=== PATIENT | female | born 1965 | race Hispanic/Latino ===

== ENCOUNTER 2017-07-28 00:13 | Emergency (ER) | payer MEDICARE ==
[~2017-07-28 00:13] MED LIST: AMLO10TA2 PO; BIMA2.5D4 OU; BRIM5DRO OU; CLAR500T PO; DIAZ10TA4 PO; DOCU100C19 PO; FLUT16H IH; FOLI0.8T22 PO; INSU100V12 SQ; LOSA100T29 PO; Lactulose PO; METO-409 PO; OMEP20CA10 PO; PHOSLOC PO; PREDAOS OD; SEVE800T7 PO; SIMV20TA6 PO; [UNRECOGNIZED DRUG - CODE] SQ
[2017-07-28] MEDS ORDERED: LORAZEPAM 2 MG/ML 1 ML VIAL ONE ×4 (00:21→04:13)
[2017-07-28] MEDS ORDERED: SODIUM CHLORIDE 0.9% 1000ML 1,000 ML IV ONE (00:44)
[2017-07-28] MEDS ORDERED: INSULIN HUMULIN R 100 UNIT/ML 3ML ONE ×2 (00:54→02:50)
[2017-07-28 01:14] LABS: BASOPHILS % (AUTO) 0.9 % (0.0-5.0); EOSINOPHILS % (AUTO) 2.3 % (0.0-8.0); HEMATOCRIT 32.2 % (36-48); LYMPHOCYTES % (AUTO) 11.2 % (21.0-51.0); MEAN CORPUSCULAR HEMOGLOBIN 30.3 pg (27.0-33.0); MEAN CORPUSCULAR HGB CONC 32.6 g/dL (32.0-36.0); NEUTROPHILS % (AUTO) 81.6 % (40.0-77.0); PLATELET COUNT (AUTO) 222 K/uL (130-400); RED BLOOD CELL COUNT(AUTO) 3.47 MIL/uL (4.00-5.50); RED CELL DISTRIBUTION WIDTH 15.2 % (11.0-15.5)
[2017-07-28 01:32] LABS: ACETONE,BLOOD NEGATIVE (NEGATIVE)
[2017-07-28 01:37] LABS: ALANINE AMINOTRANSFERASE 26 U/L (12-78); ALBUMIN 3.4 g/dL (3.5-5.0); ASPARTATE AMINOTRANSFERASE 14 U/L (10-37); BILIRUBIN,TOTAL 0.5 mg/dL (0.2-1.0); CARBON DIOXIDE 24 mmol/L (21-32); CREATININE 7.8 mg/dL (0.5-1.5); GLOMERULAR FILTR. RATE CALC 6 mL/min (>60); POTASSIUM 4.3 mmol/L (3.5-5.1); SODIUM SERUM 128 mmol/L (136-145); TOTAL PROTEIN, SERUM 7.4 g/dL (6.0-8.3); UREA NITROGEN, BLOOD 56 mg/dL (7-18)
[2017-07-28 01:40] LABS: CHLORIDE 89 mmol/L (101-111); GLUCOSE,RANDOM 572 mg/dL (70-105)
[2017-07-28] MEDS ORDERED: LEVETIRACETAM 500 MG TABLET PO ONE ×2 (02:58→15:02)
[2017-07-28] MEDS ORDERED: GADOBENATE DIMEGLUMINE 20 ML IV ONE (03:05)
[2017-07-28] MEDS ORDERED: KETOROLAC TROMETHAMINE 30MG/ML ONE (06:33)
[2017-07-28] MEDS ORDERED: ACETAMINOPHEN 325 MG TAB ONE (07:50)
== END 2017-07-28 19:50 | disposition home or self-care (01) ==
LOC: EDH 00:13
DX: I63.8 Other cerebral infarction (principal); G40.89 Other seizures; I12.0 Hypertensive chronic kidney disease with stage 5 chronic kidney disease or end stage renal disease; E10.22 Type 1 diabetes mellitus with diabetic chronic kidney disease; N18.6 End stage renal disease; E78.5 Hyperlipidemia, unspecified; Z98.890 Other specified postprocedural states; Z99.2 Dependence on renal dialysis; Z88.6 Allergy status to analgesic agent
CPT/HCPCS: 36415; 70450; 70551; 80053; 82009; 82948 ×5; 85025; 96361; 96374 ×2; 96375; 96376; 99291; J1815 ×2; J1885; J2060 ×4; J7030; A9577